=== PATIENT | male | born 1985 | race Caucasian/White ===

== ENCOUNTER 2016-11-19 01:03 | Emergency (ER) | payer OTHER ==
[~2016-11-19] VITALS: Ht 180.3 cm; Wt 68.2 kg
[2016-11-19 01:08] VITALS: Ht 180.3 cm; Wt 68.2 kg
[2016-11-19] MEDS ORDERED: ACET325T33 PO (02:06)
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
[2016-11-19] MEDS ORDERED: PHEN300C2 PO (08:37)
[2016-11-19] MEDS ORDERED: PHEN100C PO (08:37)
== END 2016-11-19 02:39 | disposition left against medical advice (07) ==
LOC: E/R 01:03
DX: Z02.89 Encounter for other administrative examinations (principal); V89.2XXA Person injured in unspecified motor-vehicle accident, traffic, initial encounter
CPT/HCPCS: 99283

== ENCOUNTER 2016-11-19 07:39 | Emergency (ER) | payer OTHER ==
[~2016-11-19] VITALS: Ht 180.3 cm; Wt 70.0 kg
[~2016-11-19 07:39] MED LIST: ACET325T33 PO
[2016-11-19 07:43] VITALS: Ht 180.3 cm; Wt 70.0 kg
[2016-11-19] MEDS ORDERED: PHENYTOIN 100 MG CAP PO ONE ×2 (08:00)
[2016-11-19] MEDS ORDERED: PHEN100C PO (08:37)
[2016-11-19] MEDS ORDERED: PHEN300C2 PO (08:37)
[2016-11-19 08:52] VITALS: BP 126/98; PULSE 72; RESP 19; TEMP 98.3
--- NOTE | 2016-11-19 08:55 | ERD ---
ER Documentation Chief Complaint Date/Time DATE: 11/19/16 TIME: 08:52 Chief Complaint BIB RA WITH [employer] IN CUSTODY. SEIZURE AT NURSING HOME. HX OF SEIZURES HPI MDM: Patient is a 31-year-old male with history of epilepsy brought in by police in custody after having a seizure. Patient denies trauma due to seizure. Patient states that he takes Dilantin 400 mg once a day, but missed his dose yesterday and today. Cannot state when his last seizure was. Denies other medical history, denies headache, denies neck pain, denies nausea vomiting , denies fever. ROS All systems reviewed and are negative except as per history of present illness. Medications Home Meds Active Scripts Phenytoin* Sodium Extended (Dilantin*) 300 Mg Capsule, 300 MG PO HS for 30 Days , CAP Prov:REED HUGO MD 11/19/16 Phenytoin* Sodium Extended (Dilantin*) 100 Mg Capsule, 100 MG PO HS for 30 Days , CAP Prov:REED HUGO MD 11/19/16 Acetaminophen* (Tylenol*) 325 Mg Tablet, 325 MG PO Q4H Y for PAIN AND OR ELEVATED TEMP, #14 TAB Prov:TOÑO SHIPLEY DO 11/19/16 Allergies Allergies: Coded Allergies: Penicillins (Verified Allergy, Unknown, 11/19/16) PMhx/Soc Past medical history: Epilepsy Past surgical history: Left shoulder Social history: Uses IV heroin History of Surgery: No Anesthesia Reaction: No Hx Neurological Disorder: No Hx Respiratory Disorders: No Hx Cardiac Disorders: Yes (seizure) Hx Psychiatric Problems: Yes (heroine use) Hx Miscellaneous Medical Probl: No Hx Alcohol Use: Yes Hx Substance Use: Yes (heroine) Hx Tobacco Use: Yes Smoking Status: Current every day smoker FmHx Family History: No coronary disease, No diabetes Physical Exam Vitals Vital Signs Date Time Temp Pulse Resp B/P Pulse Ox O2 Delivery O2 Flow Rate FiO2 11/19/16 08:52 98.3 72 19 126/98 100 Room Air 11/19/16 07:43 98.2 103 19 144/103 98 Physical Exam Const: Alert, no acute distress Head: Atraumatic Eyes: Normal Conjunctiva, no pallor or icterus ENT: Normal External Ears, Nose and Mouth. Mucous membranes moist Neck: Full range of motion. No meningismus. Nexus negative Resp: Clear to auscultation bilaterally, no wheezes, no rales Cardio: Regular rate and rhythm, no murmurs Abd: Soft, non tender, non distended. Normal bowel sounds Skin: No petechiae or rashes Back: No midline or flank tenderness Ext: No cyanosis, or edema Neur: Awake and alert, cranial nerves II through XII intact bilaterally, strength and sensation intact in 4 extremities. Psych: Normal Mood and Affect Results 24 hrs Laboratory Tests Test 11/19/16 08:35 Bedside Glucose 98mg/dL Current Medications Medications (Trade) Dose Ordered Sig/Chyna Route PRN Reason Start Time Stop Time Status Last Admin Dose Admin Phenytoin (Dilantin) 300 mg ONCE ONCE PO 11/19/16 08:00 11/19/16 08:01 DC 11/19/16 07:51 Phenytoin (Dilantin) 100 mg ONCE ONCE PO 11/19/16 08:00 11/19/16 08:01 DC 11/19/16 07:52 Procedures/MDM MDM: Patient is a 31-year-old male who presents with epileptic seizure. He is alert and oriented on arrival with no complaints. GCS 15. There is no report of trauma or signs of trauma. The patient missed a dose of Dilantin in the last 24 hours. He was given a oral dose of Dilantin in the ER and a prescription for ongoing Dilantin. Patient is okay to book. Please reports that the patient is going to be released from custody this afternoon, and the patient states that he has a supply of his medication at home. Glucose is normal. Departure Diagnosis: Primary Impression: Epileptic seizure Epilepsy type: other generalized Intractability: not intractable Status epilepticus: without status epilepticus Qualified Code: G40.409 - Other generalized epilepsy, not intractable, without status epilepticus Condition: Good Patient Instructions: Seizure, Recurrent [Adult] Additional Instructions: OK to Book. Return to ER for new symptoms or other concerns. REED HUGO MD Nov 19, 2016 08:54
== END 2016-11-19 08:54 | disposition home or self-care (01) ==
LOC: E/R 07:39
DX: G40.909 Epilepsy, unspecified, not intractable, without status epilepticus (principal); R40.2252 Coma scale, best verbal response, oriented, at arrival to emergency department; F17.210 Nicotine dependence, cigarettes, uncomplicated; R40.2142 Coma scale, eyes open, spontaneous, at arrival to emergency department; R40.2362 Coma scale, best motor response, obeys commands, at arrival to emergency department
CPT/HCPCS: 82962; 99283